=== PATIENT | male | born 1970 | race Hispanic/Latino ===

== ENCOUNTER 2022-07-29 18:44 | Inpatient (IN) | payer MEDICARE, MEDICAID ==
[2022-07-29 19:08] VITALS: BMI 30.9
[2022-07-29] MEDS ORDERED: Acetaminophen 325 MG TAB PO PRN (21:18)
[2022-07-29] MEDS ORDERED: Dextrose 50% Abboject 50 ML SYRINGE SLOW IVP PRN (21:26)
[2022-07-29] MEDS ORDERED: Dextrose 5% in Water 1,000 ML IV PRN (21:26)
[2022-07-29] MEDS: Sodium Chloride 0.9% 1,000 ML IV SCH (22:21)
[2022-07-29 22:49] LABS: #Eosinphils 0.2 10x3/uL (0.0-0.5); #Monocytes 0.7 10x3/uL (0.0-1.1); #Neutrophils 4.3 10x3/uL (1.5-8.4); %Basophils 0.6 % (0.0-2.0); %Eosinophils 3.3 % (0.0-6.0); %Lymphocytes 24.5 % (18.0-47.0); %Neutrophils 61.3 % (40.0-75.0); Hemoglobin 11.1 g/dL (13.5-17.5); Mean Corpuscular HGB CONC 33.9 g/dL (32.0-36.0); Mean Corpuscular Hemoglobin 30.5 pg (27.0-33.0); Mean Corpuscular Volume 89.8 fl (81.2-95.1); Mean Platelet Volume 10.4 fl (7.4-10.4); Platelet Count 171 10x3/uL (150-450); RBC Distribution Width 14.4 % (11.5-14.5); Red Blood Cell (RBC) Count 3.64 10x6/uL (4.32-5.72)
[2022-07-29 22:55] LABS: ALT (SGPT) 10 U/L (8-55); AST (SGOT) 16 U/L (5-34); Albumin 3.8 g/dL (3.5-5.0); Alkaline Phosphatase 120 U/L (40-110); Anion Gap 17 mmol/L (10-20); BUN (Urea Nitrogen) 42 mg/dL (8.9-20.6); Bilirubin, Total 0.5 mg/dL (0.2-1.2); Calc. Creatinine Clearance 17 mL/min (70-130); Calcium 9.9 mg/dL (7.8-10.44); Carbon Dioxide 26 mmol/L (22-29); Chloride 93 mmol/L (98-107); Estimated GFR 8; Globulin 3.6 g/dL (2.4-3.5); Glucose 260 mg/dL (70-105); Magnesium 2.2 mg/dL (1.6-2.6); Potassium 3.8 mmol/L (3.5-5.1); Protein, Total 7.4 g/dL (6.0-8.3); Sodium 132 mmol/L (136-145)
[2022-07-29] MEDS ORDERED: HumaLOG 300 UNITS/3 ML VIAL SC SCH (23:00)
[2022-07-30 05:51] LABS: SARS-CoV-2 NAA Rapid Test Not Detected (NotDetected)
[2022-07-30] MEDS ORDERED: Neomycin-Polymyxin 1 ML AMP ONE (07:26)
[2022-07-30] MEDS: Heparin 5,000 UNITS/ML VIAL SC SCH ×3 (07:26→21:31)
[2022-07-30] MEDS ORDERED: Bupivacaine PF 0.5% 30 ML VIAL ONE (07:26)
[2022-07-30] MEDS ORDERED: traMADol HCl 50 MG TAB PO PRN (07:35)
[2022-07-30] MEDS ORDERED: Ondansetron PF 4 MG/2 ML Vial ONE (08:11)
[2022-07-30] MEDS ORDERED: Lidocaine 1% PF 5 ML VIAL ONE (08:11)
[2022-07-30] MEDS ORDERED: PROPOFOL 20 ML ONE (08:11)
[2022-07-30] MEDS ORDERED: Fentanyl 100 MCG/2 ML VIAL ONE (08:11)
[2022-07-30] MEDS ORDERED: CEFAZOLIN 2 GM VIAL ONE (08:15)
[2022-07-30] MEDS ORDERED: PHENYLEPHRINE-NS 100 MCG/ML 10 ML SYRINGE ONE (08:26)
[2022-07-30] MEDS ORDERED: ePHEDrine Sulfate 50 MG/10 ML VIAL ONE (08:54)
[2022-07-30] MEDS ORDERED: HumaLOG 300 UNITS/3 ML VIAL SC PRN ×2 (11:00→21:00)
[2022-07-30] MEDS: Aspirin 81 mg Enteric Coated Tablet PO SCH (11:20)
[2022-07-30] MEDS: prednisoLONE 1% Ophth Susp 5 ml Bottle R EYE SCH (11:21)
[2022-07-30] MEDS: HYDROcodone/Acetaminophen 7.5/325 mg Tablet PO PRN ×3 (13:00→22:25)
[2022-07-30] MEDS: Morphine 2 MG/ML VIAL SLOW IVP PRN ×2 (14:58→20:21)
[2022-07-30] MEDS ORDERED: Heparin 10,000 UNITS/ 10 ML VIAL SLOW IVP PRN (18:15)
[2022-07-30 20:42] LABS: HBSAg Index 0.15 S/CO (0-0.99); Hep B Surf Ag Non-Reactive S/CO (NonReactive)
[2022-07-30] MEDS ORDERED: Atorvastatin Calcium 10 MG TAB PO SCH (21:00)
[2022-07-30] MEDS: Atorvastatin Calcium 10 MG TAB PO SCH (21:31)
[2022-07-30] MEDS: Cefepime 1 GM in Sodium Chloride 0.9% 100 ML IVPB SCH (21:31)
[2022-07-30] MEDS: Sodium Chloride 0.9% 1,000 ML IV SCH (22:25)
[2022-07-31 01:31] LABS: Hep B Core Total Ab Non-Reactive (NonReactive); Hep B Core Total Index 0.13 S/CO (0-0.79); Hep C IgG Ab Non-Reactive (NonReactive); Hep C Index 0.13 S/CO (0-0.79)
[2022-07-31 02:38] LABS: Hep B Surf AB Reactive (NonReactive)
[2022-07-31 02:39] LABS: HBSAB Concentration 12.36 mIU/mL
[2022-07-31] MEDS: HYDROcodone/Acetaminophen 7.5/325 mg Tablet PO PRN ×4 (04:21→21:50)
[2022-07-31 04:56] LABS: Anion Gap 15 mmol/L (10-20); BUN (Urea Nitrogen) 28 mg/dL (8.9-20.6); Calc. Creatinine Clearance 23 mL/min (70-130); Carbon Dioxide 26 mmol/L (22-29); Chloride 96 mmol/L (98-107); Estimated GFR 11; Glucose 254 mg/dL (70-105); Potassium 3.9 mmol/L (3.5-5.1); Sodium 133 mmol/L (136-145)
[2022-07-31 04:58] LABS: #Eosinphils 0.1 10x3/uL (0.0-0.5); #Monocytes 0.7 10x3/uL (0.0-1.1); #Neutrophils 4.4 10x3/uL (1.5-8.4); %Basophils 0.6 % (0.0-2.0); %Eosinophils 1.4 % (0.0-6.0); %Lymphocytes 15.3 % (18.0-47.0); %Monocytes 11.7 % (0.0-10.0); %Neutrophils 70.5 % (40.0-75.0); Hemoglobin 10.2 g/dL (13.5-17.5); Mean Corpuscular HGB CONC 32.5 g/dL (32.0-36.0); Mean Corpuscular Hemoglobin 30.1 pg (27.0-33.0); Mean Corpuscular Volume 92.6 fl (81.2-95.1); Mean Platelet Volume 10.4 fl (7.4-10.4); Platelet Count 160 10x3/uL (150-450); RBC Distribution Width 14.5 % (11.5-14.5); Red Blood Cell (RBC) Count 3.39 10x6/uL (4.32-5.72); White Blood Cell (WBC) Count 6.2 10x3/uL (3.5-10.5)
[2022-07-31 06:21] LABS: Prothrombin Time 10.9 sec (9.5-12.1)
[2022-07-31] MEDS ORDERED: [UNRECOGNIZED DRUG - OTHER] IVPB SCH (08:00)
[2022-07-31] MEDS: Heparin 5,000 UNITS/ML VIAL SC SCH ×3 (09:05→21:16)
[2022-07-31] MEDS: Aspirin 81 mg Enteric Coated Tablet PO SCH (09:05)
[2022-07-31] MEDS: prednisoLONE 1% Ophth Susp 5 ml Bottle R EYE SCH (09:10)
[2022-07-31] MEDS: Insulin NPH Human Isophane 100 UNIT/ML (10 ML VIAL) SC SCH (10:35)
[2022-07-31] MEDS: HumaLOG 300 UNITS/3 ML VIAL SC PRN (16:08)
[2022-07-31] MEDS: Cefepime 1 GM in Sodium Chloride 0.9% 100 ML IVPB SCH (21:16)
[2022-07-31] MEDS: Atorvastatin Calcium 10 MG TAB PO SCH (21:16)
[2022-08-01] MEDS: HYDROcodone/Acetaminophen 7.5/325 mg Tablet PO PRN ×5 (01:31→23:00)
[2022-08-01] MEDS: HumaLOG 300 UNITS/3 ML VIAL SC PRN ×3 (08:17→16:35)
[2022-08-01] MEDS: Insulin NPH Human Isophane 100 UNIT/ML (10 ML VIAL) SC SCH (08:33)
[2022-08-01] MEDS: Heparin 5,000 UNITS/ML VIAL SC SCH ×3 (08:33→21:55)
[2022-08-01] MEDS: Aspirin 81 mg Enteric Coated Tablet PO SCH (08:33)
[2022-08-01] MEDS: prednisoLONE 1% Ophth Susp 5 ml Bottle R EYE SCH (08:34)
[2022-08-01] MEDS: Morphine 2 MG/ML VIAL SLOW IVP PRN ×2 (11:39→17:50)
[2022-08-01] MEDS: Atorvastatin Calcium 10 MG TAB PO SCH (21:54)
[2022-08-01] MEDS: Cefepime 1 GM in Sodium Chloride 0.9% 100 ML IVPB SCH (21:54)
[2022-08-02] MEDS: HYDROcodone/Acetaminophen 7.5/325 mg Tablet PO PRN ×5 (04:24→22:09)
[2022-08-02 08:21] LABS: Vancomycin, Random 5.4 ug/mL (See Comment)
[2022-08-02] MEDS: Heparin 5,000 UNITS/ML VIAL SC SCH ×3 (08:28→22:09)
[2022-08-02] MEDS: Aspirin 81 mg Enteric Coated Tablet PO SCH (08:28)
[2022-08-02] MEDS: Insulin NPH Human Isophane 100 UNIT/ML (10 ML VIAL) SC SCH (08:28)
[2022-08-02] MEDS: prednisoLONE 1% Ophth Susp 5 ml Bottle R EYE SCH (08:29)
[2022-08-02] MEDS: HumaLOG 300 UNITS/3 ML VIAL SC PRN (12:09)
[2022-08-02] MEDS: Cefepime 1 GM in Sodium Chloride 0.9% 100 ML IVPB SCH (16:23)
[2022-08-02] MEDS ORDERED: Vancomycin 1.5 GRAM/300 ML BAG 1.5 GM in Premix Bag 1 BAG IVPB SCH (17:00)
[2022-08-02 17:03] VITALS: BP 219/97; TEMP 97.6
[2022-08-02] MEDS: Atorvastatin Calcium 10 MG TAB PO SCH (22:09)
== END 2022-08-02 22:15 | disposition home health service (06) | DRG 629 ==
LOC: CSHTELE 18:44 → INTOOBSV 18:44 → OBSVTOIN 07-30 18:15
PROVIDERS: ADMIT Podiatrist; ATTEND Hospitalist
PROC: 0QBN0ZZ Excision of Right Metatarsal, Open Approach (ICD-10-PCS; principal; 2022-07-30)
PROC: 5A1D70Z Performance of Urinary Filtration, Intermittent, Less than 6 Hours Per Day (ICD-10-PCS; 2022-07-30)
DX: E11.69 Type 2 diabetes mellitus with other specified complication (principal); I12.0 Hypertensive chronic kidney disease with stage 5 chronic kidney disease or end stage renal disease; M86.8X7 Other osteomyelitis, ankle and foot; E78.5 Hyperlipidemia, unspecified; N18.6 End stage renal disease; E11.621 Type 2 diabetes mellitus with foot ulcer; L97.519 Non-pressure chronic ulcer of other part of right foot with unspecified severity; Z20.822 Contact with and (suspected) exposure to COVID-19; E11.22 Type 2 diabetes mellitus with diabetic chronic kidney disease; E11.319 Type 2 diabetes mellitus with unspecified diabetic retinopathy without macular edema; D63.1 Anemia in chronic kidney disease; Z79.899 Other long term (current) drug therapy; Z99.2 Dependence on renal dialysis; Z79.4 Long term (current) use of insulin; Z79.82 Long term (current) use of aspirin; Z82.49 Family history of ischemic heart disease and other diseases of the circulatory system; Z82.3 Family history of stroke; Z89.411 Acquired absence of right great toe
CPT/HCPCS: 36415; 36416; 80048; 80053; 80202; 83735; 85025; 85610; 85652; 86140; 86704; 87070; 87076; 87077; 87102; 87186; 87205; 87206; 87340; 90935; 93005; 93010; 93880; 96374; 97139; G0257; G0378; G0379; J0692; J1644; J1815; J2270; J2405; J2704; J3010; J3370; J3490; J7050; S0020; U0002; U0003; U0005